=== PATIENT | male | born 1985 | race Hispanic/Latino ===

== ENCOUNTER 2024-12-14 08:58 | Emergency (ER) | payer OTHER, SELFPAY ==
[2024-12-14 09:00] VITALS: BP 144/79
[2024-12-14 09:33] LABS: COVID-19 Antigen Negative (Negative)
[2024-12-14 10:16] VITALS: BMI 33.6
--- NOTE | 2024-12-14 10:30 | ED.GENMED ---
History of Present Illness
General
Chief Complaint: Cold/Flu/URI Symptoms
Time Seen by Provider: 12/14/24 09:47
History of Present Illness
History of Present Illness:
39-year-old male without significant past medical history presenting for 1 week of cough. Patient reports productive cough, now with green mucus. Reports that he was having fevers a few days ago which has since resolved. Also notes in the past 2
days he started to have diarrhea. Denies known sick contacts. He is taking Tylenol and Motrin for symptoms. Denies any associate abdominal pain. Denies any vomiting. Denies additional acute medical complaints
Phy Exam
Physical Exam
Physical Exam:
General: Well-appearing, no clinical signs of dehydration, nontoxic and in no acute distress
HEENT: protecting airway, no oropharyngeal swelling or exudates
Neck: appears supple
CV: Normal heart rate, regular rhythm
Resp: No accessory muscle use, no increased work of breathing, lungs clear to auscultation bilaterally
Abd: Soft and non-distended, no tenderness to palpation
Extremities: No deformities, no swelling
Neuro: alert, no focal neurologic deficit
: deferred
Rectal: deferred
Psych: Normal affect
Skin: Intact
Course
Orders/Labs/Results
Orders:
Orders
12/14/24 09:04
COVID-19 Antigen Urgent
Source: Nasal Swab
Influenza A+B Rapid Molecular Urgent
ANURAG Source: Nasal Swab
Specimen Description:
12/14/24 10:12
CR Chest - 2 Views Urgent
Comment:
Reason For Exam: cough
Vital Signs
Initial and Last Documented VS:
Initial Vital Signs
Temp Pulse Resp BP Pulse Ox
98.7 F 72 16 144/79 98
12/14/24 09:00 12/14/24 09:00 12/14/24 09:00 12/14/24 09:00 12/14/24 09:00
Last Documented Vital Signs
Temp Pulse Resp BP Pulse Ox
98.7 F 72 16 144/79 98
12/14/24 09:00 12/14/24 09:00 12/14/24 09:00 12/14/24 09:00 12/14/24 09:00
MDM/Problems Addressed
MDM/Problems Addressed:
39-year-old male presenting to the emergency department for productive cough for 1 week. Vital signs on arrival are normal.
On exam patient is resting comfortably, no acute distress or discomfort. Benign cardiac and pulmonary exam. Lungs are clear to auscultation. Patient in no acute respiratory distress. Ultimately suspect viral syndrome as etiology of patient's
symptoms. Patient had COVID and flu swab, negative. Will plan for chest x-ray imaging given duration of symptoms
11:20 -Chest x-ray that acute cardiopulmonary disease. At this time feel patient is stable for discharge with continued outpatient supportive therapy. Return precautions discussed and patient verbalized understanding
*Critical Care Note
Total Time (30-74mins, 75-104mins- exclusive of procedures): Not Applicable
ED Attending Note
-
Portions of this chart may have been created with voice recognition software.� Occasional wrong word or��sound alike� substitutions may have occurred due to the inherent limitations of voice recognition software.
Discharge Plan
Departure
Referrals:
Pb Krishna, [Family Provider] -
Interventions
Interventions:
*Risk Screen - Suicide Last Done: 12/14/24 09:00
*Neglect/Abuse Screening Last Done: 12/14/24 09:00
*ED COVID-19 Vaccine History Last Done: 12/14/24 10:16
ED- Pulmonary Assessment Last Done: 12/14/24 10:17
Discharge Date and Time
Print Language: ARABIC
[2024-12-14 11:15] VITALS: BP 138/80
== END 2024-12-14 11:37 | disposition home or self-care (01) ==
LOC: EMR 08:58
PROVIDERS: Student in an Organized Health Care Education/Training Program; EMERGENCY PHYSICIAN Student in an Organized Health Care Education/Training Program; FAMILY PHYSICIAN Internal Medicine
DX: J06.9 Acute upper respiratory infection, unspecified (principal); R05.9 Cough, unspecified; Z11.52 Encounter for screening for COVID-19
CPT/HCPCS: 99284; 71046; 87502; 87811

== ENCOUNTER 2025-09-18 16:34 | Emergency (ER) | payer OTHER, SELFPAY ==
[2025-09-18 16:36] VITALS: BP 129/85
[2025-09-18 17:12] VITALS: BMI 32.8
--- NOTE | 2025-09-18 18:13 | ED.GENMED ---
History of Present Illness
General
Chief Complaint: Cough
Source: patient
Exam Limitations: none
Time Seen by Provider: 09/18/25 17:12
History of Present Illness
History of Present Illness:
40yoM with a history of NATHANIEL on CPAP and childhood asthma presenting with his for evaluation of a cough. Patient reports ongoing cough for the past 3 weeks. He initially had a fever but has not had a fever in the past 2 weeks. He was seen by
his PCP and was started on a Z-Everette which he completed about 2 weeks ago. He was also given a prescription for an albuterol inhaler which helps temporarily. Cough is now only productive of clear phlegm. He is having trouble sleeping at night due
to his cough and postnasal drip.
Phy Exam
General Physical Exam
General Presentation: well appearing and no apparent distress
General Skin: warm and dry
General Habitus: normal
General Mental: alert
ENT Exam
ENT Exam: normocephalic
Cardiovascular Exam
Cardiovascular Exam: regular rate/rhythm
Pulmonary Exam
Pulmonary Exam: lungs clear, no respiratory distress, no rales, no crackles, no rhonchi and no wheezing
Neurological Exam
Neurological Exam: alert
Gilberts Coma Scale
Eye Opening: Spontaneous
Verbal Response: Oriented
Motor Response: Obeys Commands
GCS Total Score: 15
Skin Exam
Skin Exam: normal color and warm/dry
Psychiatric Exam
Psychiatric Exam: normal mood/affect
Course
Orders/Labs/Results
Orders:
Orders
09/18/25 17:12
Chest [CR Chest - 2 Views ] Urgent
Comment:
Reason For Exam: cough
Vital Signs
Initial and Last Documented VS:
Initial Vital Signs
Temp Pulse Resp BP Pulse Ox
98.6 F 77 16 129/85 98
09/18/25 16:36 09/18/25 16:36 09/18/25 16:36 09/18/25 16:36 09/18/25 16:36
Last Documented Vital Signs
Temp Pulse Resp BP Pulse Ox
98.6 F 82 20 133/80 98
09/18/25 16:36 09/18/25 18:26 09/18/25 18:26 09/18/25 18:26 09/18/25 18:26
MDM/Problems Addressed
Differential Diagnosis Includes:
40yoM here with a cough x 3 weeks. Finished Zpack without improvement. VSS and oxygen saturation 98% on room air. Lungs CTA without wheezing or rales. Differential diagnosis includes: bronchitis, pneumonia, postnasal drip, GERD, seasonal allergies
CXR obtained which is negative for infiltrates. Presentation consistent with bronchitis. He was started on a course of prednisone. He is also requesting a nebulizer and prescription for albuterol neb solution provided. Supportive care discussed and
he was advised to f/u with his PCP. Patient discharged in stable condition.
*Pulse Oximetry
SaO2: 98
Oxygen Mode of Delivery: Room air
Patient hypoxic: no
*Critical Care Note
Total Time (30-74mins, 75-104mins- exclusive of procedures): Not Applicable
ED Attending Note
-
Portions of this chart may have been created with voice recognition software.� Occasional wrong word or��sound alike� substitutions may have occurred due to the inherent limitations of voice recognition software.
Discharge Plan
Departure
Patient Disposition: Home (Routine Discharge)
Patient with high blood pressure during this ER visit?: No
Discharge Problem:
Acute bronchitis
Instructions: Acute Bronchitis, Adult (DC)
Prescriptions:
New
prednisone 50 mg tablet
50 mg PO DAILY Qty: 5 0RF
albuterol sulfate 0.63 mg/3 mL solution for nebulization
0.63 mg inhalation Q6H PRN (Reason: shortness of breath or wheezing) Qty: 90 0RF
(DME) nebulizers Misc
See Rx Instructions .ROUTE Qty: 1 0RF
Rx Instructions:
As directed
Referrals:
Pb Krishna, [Family Provider, Internal Medicine]
Activity Restrictions/Additional Instructions:
Take prednisone as prescribed. Take Sudafed or Mucinex for congestion. Use honey to help with cough. Use inhaler and nebulizer treatments as needed for wheezing. Drink plenty of fluids and hydrate.
Please follow-up with your family doctor next week. Return to the ER with any new or worsening symptoms.
Interventions
Interventions:
*Risk Screen - Suicide Last Done: 09/18/25 16:36
*General Assessment Last Done: 09/18/25 18:25
*Neglect/Abuse Screening Last Done: 09/18/25 16:36
*ED- Fall Risk Assessment Last Done: 09/18/25 17:14
*ED COVID-19 Vaccine History Last Done: 09/18/25 17:14
*ED Influenza Vaccine History Last Done: 09/18/25 17:14
*Nursing Disposition Last Done: 09/18/25 18:26
ED- Pulmonary Assessment Last Done: 09/18/25 17:12
Discharge Date and Time
Discharge Date/Time: 09/18/25 18:26
Print Language: COLOMBIAN
[2025-09-18 18:26] VITALS: BP 133/80
== END 2025-09-18 18:26 | disposition home or self-care (01) ==
LOC: EMR 16:34
PROVIDERS: EMERGENCY PHYSICIAN Emergency Medicine; FAMILY PHYSICIAN Internal Medicine
DX: J20.9 Acute bronchitis, unspecified (principal); G47.33 Obstructive sleep apnea (adult) (pediatric); J45.909 Unspecified asthma, uncomplicated
CPT/HCPCS: 99283; 71046

== ENCOUNTER 2025-09-29 00:30 | Observation (INO) | payer OTHER, SELFPAY ==
[2025-09-28 19:25] VITALS: BP 171/126
[2025-09-28 19:55] LABS: Hematocrit 42.7 % (39.0-52.0); Hemoglobin 14.0 g/dL (13.0-18.0); Mean Corp Hgb Conc. 32.8 g/dL (33.0-37.0); Mean Corpuscular Volume 81.0 fL (80.0-94.0); Platelet Count 226 10^3/uL (130-400); Red Cell Dist. Width 14.2 % (11.5-14.5)
[2025-09-28 20:04] LABS: ALT (SGPT) 94 U/L (0-50); AST (SGOT) 51 U/L (17-59); Albumin 4.5 g/dl (3.5-5.0); Alkaline Phosphatase 75 U/L (38-126); Blood Urea Nitrogen 19 mg/dl (9-20); COVID-19 Antigen Negative (Negative); Calcium 8.9 mg/dl (8.4-10.2); Carbon Dioxide 30 mmol/L (22-30); Chloride 103 mmol/L (98-107); Glucose 101 mg/dl (70-99); Potassium 4.0 mmol/L (3.5-5.1); Sodium 139 mmol/L (135-145); Total Protein 7.9 g/dl (6.3-8.2); eGFR > 60.00
[2025-09-28 20:08] LABS: Nucleated Red Blood Cells % 0 % (-)
[2025-09-28] MEDS: DUONEB 3 ML INH ×2 (20:53→23:40)
[2025-09-28 21:45] VITALS: BP 148/95
[2025-09-28 21:46] VITALS: BMI 33.7
[2025-09-28 22:14] VITALS: BP 150/94
[2025-09-28] MEDS: DECADRON 10 MG IV (23:40)
[2025-09-28] MEDS: ZITHROMAX INFUSION 250 IV (23:40)
[2025-09-28] MEDS: ROBITUSSIN AC 10 ML PO (23:40)
--- NOTE | 2025-09-28 23:40 | ED.GENMED ---
History of Present Illness
General
Chief Complaint: Breathing Problem
Source: patient
Exam Limitations: none
Time Seen by Provider: 09/28/25 22:32
Nursing documentation reviewed up to this point in time: agreed with
History of Present Illness
History of Present Illness:
Patient presents to ED secondary to worsening cough with shortness of breath over the past 5 weeks, despite finishing course of antibiotics, steroids, along with use of inhaler. Denies fever or chills. Denies nausea, vomiting, or diarrhea. Denies
headache. Denies dizziness. Patient reports after the sleep at night due to coughing spasm. Denies recent travel or surgery. Denies leg pain or swelling. Denies back pain. Denies chest pain. Patient reports continual postnasal drip.
Review of Systems
Review of Systems
Allergies reviewed?: Yes
All Other Systems: ROS reviewed and negative except as documented in HPI and ROS
Constitutional: Reports no symptoms; Denies fever
Respiratory: Reports cough and trouble breathing
ABD/GI: Reports no symptoms
Musculoskeletal: Reports no symptoms
Skin: Reports no symptoms
Neurological: Reports no symptoms
Phy Exam
Physical Exam
Physical Exam:
Physical Exam
General: mild respiratory distress, not acutely ill. afebrile
Head: nc/at. eomi
Neck: supple. no meningeal signs
Heart: tachycardic with regular rhythm.
Lungs: mild respiratory distress. diminished breath sounds bilaterally
Abdomen: normal bowel sounds. not tender.
Neuro: alert and oriented x 3. no focal neurological deficits
Skin: no rash
Psychiatric: well kept. interactive and cooperative
Extremities: no edema. no calf tenderness.
Course
Orders/Labs/Results
Orders:
Orders
09/28/25 19:29
Electrocardiogram (*1) Urgent
Reason for Study: Shortness of Breath
EKG- Treatment ONCE
09/28/25 19:40
COVID-19 Antigen Urgent
Source: Nasal Swab
Complete Blood Count/With Diff Urgent
Comprehensive Metabolic Panel Urgent
INF RAPID [Influenza A+B Rapid Molecular] Urgent
ANURAG Source: Nasal Swab
Specimen Description:
09/28/25 20:34
Chest [CR Chest - 2 Views ] Urgent
Comment:
Reason For Exam: SOB/COUGH
09/28/25 20:43
Ipratropium/Albuterol Sulfate [Duoneb] 3 ml .ROUTE .STK-MED ONE
09/28/25 20:52
Ipratropium/Albuterol Sulfate [Duoneb] 3 ml INH R NOW ONE
09/28/25 23:29
Dexamethasone Sod Phosphate [Decadron] 10 mg IV NOW STA
Guaifenesin/Codeine Solution [Robitussin AC] 10 ml PO NOW STA
Ipratropium/Albuterol Sulfate [Duoneb] 3 ml INH R NOW STA
09/28/25 23:30
Azithromycin 500 mg/250 ml [Zithromax Infusion] 500 mg in 250 ml IV NOW
09/29/25 00:24
Admit/Transfer Patient As Directed
Co-Sign Provider:
Level of Care: Observation services
Assign to:: Medical/Surgical
Physician / Group: [email or web address]
Diagnosis: asthmatic bronchitis
Code Status As Directed
Resuscitation Status: Full Code
PRN Pain Medication Management As Directed
May give lesser potent ordered pain med per pt: Yes
preference::
Protocol:: Medication orders for pain may be administered in a
manner that supports deferring to patient preference
when the pt is:
- Requesting an ordered lesser potent pain medication.
Least to most potent pain medications are defined
as: acetaminophen < NSAID < tramadol < opioids
(morphine, oxycodone, hydromorphone).
- Requesting a lesser dose of the same medication IF
ORDERED.
- Requesting a less intrusive route of administration
if both routes are prescribed by the provider (PO <
IV).
09/29/25 01:52
Acetaminophen [Tylenol] 650 mg PO Q4HPRN PRN
Bisacodyl [Dulcolax] 10 mg RECTAL [id number] PRN
Docusate W/Senna [Senokot-S] 1 tablet PO BIDPRN PRN
Guaifenesin/Dextromethorphan [Robitussin Dm] 5 ml PO Q4HPRN PRN
Polyethylene Glycol Powder [Miralax] 17 grams PO DAILYPRN PRN
Peak Flow Rate [RESP] DAILY
Quantity: 1
09/29/25 01:52
Activity As Directed
Activity Level: With Assistance
Pneumatic Compression Sleeves As Directed
Type: Knee high
Vital Signs As Directed
Frequency: Per unit guidelines
Cpap [RESP] Routine
Patient to use own unit?: No
Set Pressure (cm H2O): 10
Pulse Ox/spot Check [RESP] Routine
Quantity: 1
DX Deep Vein Thrombosis Video Routine
09/29/25 04:00
Ipratropium/Albuterol Sulfate [Duoneb] 3 ml INH R Q4HPRN PRN
09/29/25 Breakfast
Regular
09/29/25 08:00
Albuterol Nebs [Ventolin Nebules] 2.5 mg INH R QID
Budesonide/Formoterol 80/4.5 [Symbicort 80/4.5 Mcg Inhaler] 2 puff INH R BID
Prednisone [Deltasone] 50 mg PO DAILY
09/29/25 12:00
Azithromycin [Zithromax] 500 mg PO DAILY
09/29/25 18:00
Montelukast Sodium [Singulair] 10 mg PO QPM
Abnormal Lab Results
09/28/25
19:40
WBC 12.3 H 10^3/uL
(4.8-10.8)
MCH 26.6 L pg
(27.0-31.0)
MCHC 32.8 L g/dL
(33.0-37.0)
Absolute Lymphs (auto) 6.7 H 10^3/uL
(1.2-3.4)
Absolute Monos (auto) 0.8 H 10^3/uL
(0.1-0.6)
Neutrophils % 33.0 L %
(42.2-75.2)
Lymphocytes % 55.0 H %
(20.5-51.1)
Glucose 101 H mg/dl
(70-99)
ALT 94 H U/L
(0-50)
09/28/25 19:40
09/28/25 19:40
Vital Signs
Initial and Last Documented VS:
Initial Vital Signs
Temp Pulse Resp BP Pulse Ox
98.6 F 102 22 171/126 97
09/28/25 19:25 09/28/25 19:25 09/28/25 19:25 09/28/25 19:25 09/28/25 19:25
Last Documented Vital Signs
Temp Pulse Resp BP Pulse Ox
98.1 F 87 20 135/84 94
09/29/25 01:57 09/29/25 02:34 09/29/25 02:34 09/29/25 01:57 09/29/25 02:34
MDM/Problems Addressed
MDM/Problems Addressed:
History and exam consistent with likely bronchitis, not responding to outpatient treatment. As such, patient will be admitted for further evaluation and treatment.
*Pulse Oximetry
SaO2: 94
Oxygen Mode of Delivery: Room air
Patient hypoxic: no
*Critical Care Note
Total Time (30-74mins, 75-104mins- exclusive of procedures): Not Applicable
ED Attending Note
-
Portions of this chart may have been created with voice recognition software.� Occasional wrong word or��sound alike� substitutions may have occurred due to the inherent limitations of voice recognition software.
Discharge Plan
Departure
Patient Disposition: Admit
Date of Disposition: 09/28/25
Time of Disposition: 23:47
Admit to: Telemetry
Presentation/result/management discussed w/ accepting MD/DO: Hospitalist
Discharge Problem:
Bronchitis
Interventions
Interventions:
*Risk Screen - Suicide Last Done: 09/28/25 19:25
*General Assessment Last Done: 09/28/25 21:46
*Neglect/Abuse Screening Last Done: 09/28/25 19:25
*ED- Fall Risk Assessment Last Done: 09/28/25 21:46
*ED COVID-19 Vaccine History Last Done: 09/28/25 21:46
*ED Influenza Vaccine History Last Done: 09/28/25 21:46
*Nursing Disposition Last Done: 09/29/25 02:07
ED- Cardiac Assessment Last Done: 09/28/25 21:40
ED- Pulmonary Assessment Last Done: 09/28/25 21:40
Discharge Date and Time
Discharge Date/Time: 09/29/25 02:08
--- NOTE | 2025-09-28 23:55 | HPS.HSE ---
Family Physician
-
Family Physician: Pb Krishna
Chief Complaint
-
Shortness of breath
History of Present Illness
This is a 40-year-old who has past medical history significant for asthma, sleep apnea on CPAP, hyperlipidemia, hidradenitis suppurativa, presents to the emergency department with continued symptoms of cough and shortness of breath as well as
development of wheezing after recent diagnosis of bronchitis.
Exam patient reports past medical history of childhood asthma, HS, with no significant exacerbation and asthma for several years up until about a few months ago when he started having intermittent cough shortness of breath and wheezing. He did have
a pulmonary function test a few months ago that was unremarkable. He states that about 5 weeks ago he was diagnosed with bronchitis and was treated with antibiotics and a steroid taper. While he was on the antibiotics did have improvement in
symptoms although not complete resolution. Once he stopped the antibiotics his symptoms recurred and he came to the emergency department about a week ago and was treated for asthma exacerbation. Patient quit smoking over 4 years ago but was a
[id number] smoker prior to that. He reported every winter he has coughing episode that is consistent with recurrent acute bronchitis chronic bronchitis. He reports possibility of allergies to gluten. He denies having any chest pain. He denies
orthopnea or PND. He denies any lower extremity swelling.
In the emergency department he was afebrile, he was satting 94% on room air. Blood pressure was 150/94 with a pulse rate of 81. Chest x-ray shows no acute findings. ECG with a normal sinus rhythm at rate of 82. He has a white count of 12.3
hemoglobin platelets are normal. Electrolytes BUN and creatinine were all normal.
Medical History
Past Medical History
Past Medical History: Reports Other
Additional Past Medical History:
Hidradenitis suppurativa
Hyperlipidemia
Sleep apnea on CPAP
Asthma
Past Surgical History: Reports Other (Right hand surgery)
Social History
Tobacco: Former Smoker
Alcohol: None
Drug: None
Employment: Employed
Family History
Family History: Not pertinent
Allergies / Home Medications
Allergies reflects when Allergies were last updated in [employer].
Home Medications with original date entered in [employer]
Allergy/Medication List:
Allergies
Allergy/AdvReac Type Severity Reaction Status Date / Time
No Known Allergies Allergy Verified 09/18/25 16:39
Home Medications
albuterol sulfate 0.63 mg/3 mL solution for nebulization 0.63 mg (3 mL) inhalation Q6H PRN shortness of breath or wheezing #90 mL 09/18/25
nebulizers #1 ea 09/18/25
prednisone 50 mg tablet 50 mg PO DAILY #5 tabs 09/18/25
Review of Systems
-
Constitutional: Reports No Symptoms
EENT: Reports No Symptoms
Respiratory: Reports Cough and Trouble Breathing
Cardiac: Reports No Symptoms
Abdomen/GI: Reports No Symptoms
: Reports No Symptoms
Musculoskeletal: Reports No Symptoms
Skin: Reports No Symptoms
Neurological: Reports No Symptoms
Endocrine: Reports No Symptoms
Hematologic/Lymphatic: Reports No Symptoms
Psych: Reports No Symptoms
Physical Exam
Vital Signs
Vital Signs
Temp Pulse Resp BP Pulse Ox
98.6 F 89 18 150/94 94
09/28/25 19:25 09/28/25 22:14 09/28/25 22:14 09/28/25 22:14 09/28/25 23:42
Physical Exam
General: Well Developed, Well Nourished and No Apparent Distress
HEENT: NormoCephalic, Moist mucous membranes and Atraumatic
Respiratory: Wheezes (Faint occasional wheezes otherwise clear lungs)
Cardiac: S1/S2 and Regular Rhythm; No Murmur or Rub
GI: Soft, Non Tender, Non Distended and Normal Bowel Sounds; No Organomegaly
Rectal: Deferred by Provider
Musculoskeletal: No Clubbing, No Cyanosis and No Edema
Skin: No Rash
Neuro: Nonfocal/grossly intact
Psych: Calm
Laboratory Results
-
09/28/25 19:40
09/28/25 19:40
Laboratory Results
Total Bilirubin 0.5 mg/dl (0.2-1.3) 09/28/25 19:40
AST 51 U/L (17-59) 09/28/25 19:40
ALT 94 U/L (0-50) H 09/28/25 19:40
Alkaline Phosphatase 75 U/L (38-126) 09/28/25 19:40
Data Reviewed
-
Diagnostic Radiology: Image Personally Visualized and interpreted and Report Reviewed by me
Medical Tests (Nuc Med, Echo, EKG etc): Image Personally Visualized and interpreted
Lab Data: Labs Reviewed by me
Impression/Plan
-
IMPRESSION:
40-year-old who has been having recurrent cough and wheezing episodes for the last 5 weeks despite treatment with antibiotics and a steroid taper. He presents to the Emergency Department with ongoing symptoms for the last few days. He is not
hypoxic, chest x-ray is clear. He has chronic leukocytosis which is attributable to the hidradenitis suppurativa. He reports few weeks ago did have a fever for about 3 days but not recently. He denies any known sick contact. He states has had
negative COVID and flu testing.
PLAN:
Suspect asthmatic bronchitis versus allergy induced asthma
� [facility] to [facility]
� Will continue azithromycin p.o. for now
� Steroid taper starting at 50 mg p.o. and then continue for slow taper after discharge
� Will start Symbicort twice daily
� Montelukast daily
� As needed albuterol
� Daily peak flows for now, current peak flow is 380
� Cough suppression
� Patient has an outpatient pulmonary which she can have an appointment in about 6 weeks
NATHANIEL
� CPAP 10 at bedtime
Urinary suppurativa�patient has couple of lesions in the left and right armpits. Not currently on acute treatment
� Monitor
DVT prophylaxis�SCDs
CODE STATUS�full code
[2025-09-29 01:25] VITALS: BP 141/79
[2025-09-29 01:57] VITALS: BP 135/84; BMI 32.3
[2025-09-29] MEDS: DUONEB 3 ML INH (02:30)
[2025-09-29 02:57] VITALS: PULSE 84
--- NOTE | 2025-09-29 03:05 | PTCARENOTE ---
Received patient as admit from ED. Pt AAOx3. Pt afebrile, VSS. Left FA IV C/D/I. Pt with frequent cough, + I/E wheeze. RT at bedside for PRN Neb and Cpap. Pt oriented to room. SCDs in place. Bed in lowest position and call bar[place]ona within reach.
[2025-09-29 07:23] VITALS: BP 127/87
[2025-09-29] MEDS: SYMBICORT 80/4.5 MCG INHALER 2 PUFF INH (07:30)
[2025-09-29] MEDS: VENTOLIN NEBULES 2.5 MG INH (07:30)
[2025-09-29] MEDS: DELTASONE 50 MG PO (08:01)
[2025-09-29] MEDS: ROBITUSSIN DM 5 ML PO (08:06)
--- NOTE | 2025-09-29 09:02 | W.PN.HOSP.TC ---
Today's Communication/Plan
-
OK for DC
Assessment / Plan
Assessment / Plan
IMPRESSION:
40-year-old who has been having recurrent cough and wheezing episodes for the last 5 weeks despite treatment with antibiotics and a steroid taper. He presents to the Emergency Department with ongoing symptoms for the last few days. He is not
hypoxic, chest x-ray is clear. He has chronic leukocytosis which is attributable to the hidradenitis suppurativa. He reports few weeks ago did have a fever for about 3 days but not recently. He denies any known sick contact. He states has had
negative COVID and flu testing.
CXR
IMPRESSION:
No acute cardiopulmonary process.
PLAN:
Suspect asthmatic bronchitis versus allergy induced asthma
� Admitted to [facility] observation]
- one more dose azithro on DC
- continue steroid taper at DC
- precribe Symbicort and albuterol PRN
-robitussin PRN
- OK for DC
� Patient has an outpatient pulmonary which she can have an appointment in about 6 weeks
NATHANIEL
� CPAP 10 at bedtime
Urinary suppurativa�patient has couple of lesions in the left and right armpits. Not currently on acute treatment
� Monitor
DVT prophylaxis�SCDs
CODE STATUS�full code
Anticipated Discharge: Today
Subjective/Interval History
-
Date of Service: September 29, 2025
patient states he feels 100% better and is ready to go home
Objective Data
-
Vital Signs:
Vital Signs
Temp Pulse Resp BP Pulse Ox
97.8 F 78 16 127/87 96
09/29/25 07:23 09/29/25 07:31 09/29/25 07:31 09/29/25 07:23 09/29/25 07:31
I&O
09/28/25 09/29/25 09/30/25
06:59 06:59 06:59
Intake Total 240 / 240
Balance 240 / 240
Review of Systems
-
History Source: Patient
All other systems: Reviewed and negative
Physical Exam
-
General: No Apparent Distress
HEENT: PERRLA
Respiratory: Negative Wheezes
Cardiac: Regular Rhythm and S1/S2
GI: Soft, Nontender and Nondistended
Skin: Warm and Dry; Negative Rash
Neuro: AO x 3
Psych: Calm
Data Reviewed
-
Diagnostic Radiology: Report Reviewed by me
Labs: Labs Reviewed by me
--- NOTE | 2025-09-29 09:37 | W.DS.TRANS ---
DC Summary - Drafter (Cad) Electronic
-
Discharge Instructions:
Discharge Diagnosis/Procedures acute viral triggered asthma exacerbation
Diet Regular
Activity As tolerated
Driving Restrictions As prior to admission
Bathing Restrictions None
Instructions:
Stand-Alone Forms:
Changes to Home Medications: Yes
Discharge Medications:
DC Medications w/original date entered in [employer]
albuterol sulfate 2.5 mg/3 mL (0.083 %) solution for nebulization 2.5 mg (3 mL) inhalation R QID PRN shortness of breath or wheezing #75 mL 09/29/25
albuterol sulfate 90 mcg/actuation aerosol inhaler (Ventolin HFA) 2 puff inhalation Q6H PRN wheezing #6.7 grams 09/29/25
azithromycin 500 mg tablet 500 mg PO DAILY@1800 2 days #2 tabs 09/29/25
budesonide-formoterol HFA 80 mcg-4.5 mcg/actuation aerosol inhaler (Symbicort) 2 puff inhalation R BID #10.2 grams 09/29/25
dextromethorphan-guaifenesin 10 mg-100 mg/5 mL oral syrup 5 ml PO Q4HPRN PRN cough #237 mL 09/29/25
nicotine 09/29/25
prednisone 10 mg tablet 10 mg PO DIRECTED #30 tabs 09/29/25
Home Medication Changes
Take Symbicort twice a day regardless of symptoms until follow up with Dr. Abraham for further direction
Take Albuterol as needed for wheezing (You are prescribed inhaler and nebulizer)
Take Prednisone course as prescribed: 40mg(4 tabs) x 3 days; 30mg(3 tabs) x 3 days; 20mg(2 tabs) x 3 days; 10mg(1 tab) x 3 days then stop
Pending Results: No
--- NOTE | 2025-09-29 09:55 | CM ---
Patient see at bedside with
OBS status-form explained & signed
Lives in a 2 story home, 1 step to enter, flight stairs to bed/bath
PLOF: independent, works, drives
Denies DME
Denies VN/Rehab
PCP: Pb Krishna
Pharmacy: [facility]
PLAN: Home, no needs
to transport
[2025-09-29] MEDS: FLUZONE (6 mos+) 2025-2026 FORMULA 0.5 ML IM (10:12)
[2025-09-29] MEDS: ZITHROMAX 500 MG PO (10:16)
--- NOTE | 2025-09-29 14:42 | W.DCSUMMARY ---
Discharge Summary
Discharge Data
Date of Admission: 09/29/25
Date of Discharge: 09/29/25
-
Pending Results: No
Hospital Course
Discharging Physician : Dr. Margy La
Disposition : Home
Primary care physician : Dr. Pb Krishna
Principal Discharge diagnosis : Acute viral triggered asthma exacerbation
Hospital Course :
Mr. Alex Dinh is a 40 yo man with hx childhood asthma, recurrent cough/wheezing over past several weeks s/p abx course and steroids who presents to the ER with persistent shortness of breath, cough, and wheezing. He was not hypoxic on
arrival. CXR clear. He was given steroids, stated on Symbicort inhalers and Azithromycin. On hospital day 1 patient told me that his symptoms were 100% improved. He feels ready for discharge. He is discharged on steroid taper, new script for
Symbicort and [employer] Albuterol refilled. He will also complete 2 more days of Azithromycin.
He has follow up with Dr. Abraham in November.
Time spent on discharge was 31 minutes.
Important imaging findings :
CXR
IMPRESSION:
No acute cardiopulmonary process.
Procedure findings :
Discharge Plan
-
Patient Disposition: Home (Routine Discharge)
Discharge Diagnosis/Procedures: acute viral triggered asthma exacerbation
Diet: Regular
Activity: As tolerated
Driving Restrictions: As prior to admission
Bathing Restrictions: None
Referrals:
Pb Krishna, DO [Family Provider, Internal Medicine] - in less than 1 week
Additional Discharge Medication Instructions: Take Symbicort twice a day regardless of symptoms until follow up with Dr. Abraham for further direction
Take Albuterol as needed for wheezing (You are prescribed inhaler and nebulizer)
Take Prednisone course as prescribed: 40mg(4 tabs) x 3 days; 30mg(3 tabs) x 3 days; 20mg(2 tabs) x 3 days; 10mg(1 tab) x 3 days then stop
Prescriptions:
New
budesonide-formoterol [Symbicort] 80-4.5 mcg/actuation Hfa Aerosol Inhaler
2 puff inhalation R BID Qty: 10.2 0RF
albuterol sulfate 2.5 mg /3 mL (0.083 %) Solution For Nebulization
2.5 mg inhalation R QID PRN (Reason: shortness of breath or wheezing) Qty: 75 0RF
prednisone 10 mg tablet
10 mg PO DIRECTED Qty: 30 0RF
Rx Instructions:
40mg(4 tabs) x 3 days; 30mg(3 tabs) x 3 days; 20mg(2 tabs) x 3 days; 10mg(1 tab) x 3 days
dextromethorphan-guaifenesin 10-100 mg/5 mL Syrup
5 ml PO Q4HPRN PRN (Reason: cough) Qty: 237 0RF
albuterol sulfate [Ventolin HFA] 90 mcg/actuation HFA aerosol inhaler
2 puff inhalation Q6H PRN (Reason: wheezing) Qty: 6.7 0RF
azithromycin 500 mg tablet
500 mg PO DAILY@1800 2 Days Qty: 2 0RF
Continued
nicotine patch
Discharge Orders:
Discharge Patient (As Directed); Ordered 09/29/25
Ordered By: Margy La
Discharge Date and Time
Discharge Date/Time: 09/29/25 10:49
Print Language: [id number]
== END 2025-09-29 10:49 | disposition home or self-care (01) ==
LOC: 3 WEST ACU 00:30
PROVIDERS: ADMITTING PHYSICIAN Internal Medicine; ATTENDING PHYSICIAN Student in an Organized Health Care Education/Training Program; EMERGENCY PHYSICIAN Emergency Medicine; FAMILY PHYSICIAN Internal Medicine
DX: J45.901 Unspecified asthma with (acute) exacerbation (principal); R06.02 Shortness of breath; R09.82 Postnasal drip; G47.33 Obstructive sleep apnea (adult) (pediatric); B97.89 Other viral agents as the cause of diseases classified elsewhere; R05.9 Cough, unspecified; L73.2 Hidradenitis suppurativa; E78.5 Hyperlipidemia, unspecified; Z79.51 Long term (current) use of inhaled steroids; Z79.52 Long term (current) use of systemic steroids; Z79.899 Other long term (current) drug therapy; Z87.09 Personal history of other diseases of the respiratory system; Z87.891 Personal history of nicotine dependence; Z98.890 Other specified postprocedural states; Z23 Encounter for immunization; Z11.52 Encounter for screening for COVID-19
CPT/HCPCS: 71046; 80053; 85025; 87070; 87502; 87811; 90656; 93005; 94640; 94660; 96365; 96375; 99285; G0008; G0378